=== PATIENT | female | born 1985 | race Caucasian/White ===

== ENCOUNTER 2017-11-21 09:30 | Emergency (ER) | payer OTHER ==
[2017-11-21] MEDS ORDERED: Tetan/Diph/Pertus SYR(Tdap)* 0.5 ML SYR(BOOSTRIX) use SYR IM ONE (10:07)
[2017-11-21 10:27] LABS: ABS Basophils 0 10^3/ul (0-0.2); ABS Eosinophils 0.1 10^3/ul (0-0.6); ABS Lymphocytes 1.9 10^3/ul (1.0-4.8); ABS Monocytes 0.4 10^3/ul (0-0.8); ABS Neutrophils 3.1 10^3/ul (1.5-7.7); ABS Nucleated RBC 0 10^3/ul; Eosinophil % 1.9 % (0-6); Hematocrit 40 % (35-47); Hemoglobin 13.3 g/dl (12.0-16.0); Lymphocyte % 34.1 % (25-47); Mean Corpuscular HGB Conc 33 g/dl (31-36); Mean Corpuscular Hemoglobin 28 pg (27-31); Mean Corpuscular Volume 83 fL (80-97); Mean Platelet Volume 9 um3 (7.4-10.4); Nucleated Red Blood Cells % 0; Platelet Count 252 10^3/ul (150-450); Red Blood Count 4.79 10^6/ul (4.0-5.4); Red Cell Distribution Width 14 % (10.5-15); White Blood Count 5.5 10^3/ul (3.5-10.8)
[2017-11-21 10:45] LABS: EGFR Non-African American 90.4 (>60)
--- NOTE | 2017-11-21 12:05 | ED ---
- HPI Summary HPI Summary: Pt here w/ needle stick to Right index finger just before 9:00am this morning. 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 She had used a butterfly needle to draw a pt's blood just prior to incident and reports it must have not retracted completely. She reports a small but possibly deep puncture wound to her finger w/ little to no bleeding. She washed the area after the incident and wheeled the pt out of her work area. The source pt had a blue top drawn only and pt believes he was heading to imaging next. Pt is unaware of the source pt's HIV/Hep B and C status. - History of Current Complaint Chief Complaint: EDGeneral Stated Complaint: NEEDLE STICK Time Seen by Provider: 11/21/17 09:42 PMH/Surg Hx/FS Hx/Imm Hx Previously Healthy: Yes - Immunization History Immunizations Up to Date: Yes - has received heb B series and last tetanus was 2013. Infectious Disease History: No Infectious Disease History: Denies: Traveled Outside the [place] in Last 30 Days - Family History Known Family History: Positive: None - Social History Occupation: Employed Full-time Lives: With Family Review of Systems Constitutional: Negative Positive: no symptoms reported Musculoskeletal: Negative Skin: Other - finger stick Neurological: Negative Psychological: Normal All Other Systems Reviewed And Are Negative: Yes Physical Exam Triage Information Reviewed: Yes Vital Signs On Initial Exam: Initial Vitals Temp Pulse Resp BP Pulse Ox 98.5 F 73 18 112/80 99 11/21/17 09:38 11/21/17 09:38 11/21/17 09:38 11/21/17 09:38 11/21/17 09:38 Vital Signs Reviewed: Yes Appearance: Positive: Well-Appearing, No Pain Distress, Well-Nourished Skin: Positive: Warm, Skin Color Reflects Adequate Perfusion, Dry - pinpoint area over Rt distal index finger pad w/ ecchymotic area - no bleeding, no open wound identified Head/Face: Positive: Normal Head/Face Inspection Eyes: Positive: Normal, EOMI ENT: Positive: Hearing grossly normal Neck: Positive: Supple Respiratory/Lung Sounds: Positive: Breath Sounds Present Cardiovascular: Positive: Pulses are Symmetrical in both Upper and Lower Extremities Musculoskeletal: Positive: Normal, Strength/ROM Intact Neurological: Positive: Normal, Sensory/Motor Intact, Alert, Oriented to Person Place, Time, CN Intact II-III Psychiatric: Positive: Normal Diagnostics - Vital Signs Vital Signs Temp Pulse Resp BP Pulse Ox 11/21/17 09:38 98.5 F 73 18 112/80 99 - Laboratory Lab Results: Lab Results 11/21/17 11/21/17 Range/Units 10:11 10:11 WBC 5.5 (3.5-10.8) 10^3/ul RBC 4.79 (4.0-5.4) 10^6/ul Hgb 13.3 (12.0-16.0) g/dl Hct 40 (35-47) % MCV 83 (80-97) fL MCH 28 (27-31) pg MCHC 33 (31-36) g/dl RDW 14 (10.5-15) % Plt Count 252 (150-450) 10^3/ul MPV 9 (7.4-10.4) um3 Neut % (Auto) 56.9 (38-83) % Lymph % (Auto) 34.1 (25-47) % Dewitt % (Auto) 6.7 (1-9) % Eos % (Auto) 1.9 (0-6) % Baso % (Auto) 0.4 (0-2) % Absolute Neuts (auto) 3.1 (1.5-7.7) 10^3/ul Absolute Lymphs (auto) 1.9 (1.0-4.8) 10^3/ul Absolute Monos (auto) 0.4 (0-0.8) 10^3/ul Absolute Eos (auto) 0.1 (0-0.6) 10^3/ul Absolute Basos (auto) 0 (0-0.2) 10^3/ul Absolute Nucleated RBC 0 10^3/ul Nucleated RBC % 0 Sodium 136 (133-145) mmol/L Potassium 3.9 (3.5-5.0) mmol/L Chloride 107 (101-111) mmol/L Carbon Dioxide 23 (22-32) mmol/L Anion Gap 6 (2-11) mmol/L BUN 16 (6-24) mg/dL Creatinine 0.74 (0.51-0.95) mg/dL Est GFR ( Amer) 116.2 (>60) Est GFR (Non-Af Amer) 90.4 (>60) BUN/Creatinine Ratio 21.6 H (8-20) Glucose 89 (70-100) mg/dL Calcium 9.7 (8.6-10.3) mg/dL Total Bilirubin 0.30 (0.2-1.0) mg/dL AST 15 (13-39) U/L ALT 17 (7-52) U/L Alkaline Phosphatase 55 (34-104) U/L Total Protein 7.5 (6.4-8.9) g/dL Albumin 4.3 (3.2-5.2) g/dL Globulin 3.2 (2-4) g/dL Albumin/Globulin Ratio 1.3 (1-3) Beta HCG, Quant < 0.60 mIU/mL Result Diagrams: 11/21/17 10:11 11/21/17 10:11 Lab Statement: Any lab studies that have been ordered have been reviewed, and results considered in the medical decision making process. Needlestick Course/Dx - Course Course Of Treatment: Found source pt in [place] He agreed to HIV and Hep B/C testing. He will review his results with his PCP, Dr. Shearer, and was not kept beyond this blood draw. Pt was here in the ED for 4+ hours as the process of finding the pt and problem solving correct way to obtain blood along with then processing blood and making a decision for pt was long. Discussed with pt if future body fluid exposures occur, to please keep pt and discuss issue and request consent immediately to avoid delay of obtaining specimen and desicion making. Discussed w/ Trisha Duffy and Umu Perez who also spoke w/ Dr. Jackson who signed for source pt's lab work order. Source pt's medical record # is [id number] See paperwork for details. Source pt requesting lab results be sent to PCP, Dr. Shearer. This pt will be d/c'd and discussed that based on type on injury and that source pt's results place her at very low to no risk of transmission. After much discussion and a call to Dr. Cabral, we decided pt does not need PEP. She will monitor her injury for s/sx of infection and f/u w/ PCP. - Diagnoses Provider Diagnoses: Needlestick injury accident Discharge - Discharge Plan Condition: Stable Disposition: HOME Patient Education Materials: Needle Stick Injuries (ED) Forms: *Work Release Referrals: Tootie Aguirre DO [Doctor of Osteopathy] - Additional Instructions: Follow-up with PCP. Call today to schedule an appointment for next week before your medications are completed.
[2017-11-21] MEDS ORDERED: Raltegravir* 400 MG TAB PO ONE (14:00)
[2017-11-21] MEDS ORDERED: Tenofovir/Emtricitabine(*) TAB PO ONE (14:00)
[2017-11-21 14:49] VITALS: BP 115/71
== END 2017-11-21 14:48 | disposition home or self-care (01) ==
LOC: ED 09:30
DX: S61.230A Puncture wound without foreign body of right index finger without damage to nail, initial encounter (principal); W46.0XXA Contact with hypodermic needle, initial encounter; Y92.239 Unspecified place in hospital as the place of occurrence of the external cause
CPT/HCPCS: 36415; 80053; 84702; 85025; 86703; 86706; 86803; 87340; 99282

== ENCOUNTER 2019-02-15 16:05 | Emergency (ER) | payer BC ==
[2019-02-15 16:18] VITALS: BP 122/77
--- NOTE | 2019-02-15 16:58 | UC ---
Cardiac HPI - HPI Summary HPI Summary: 33-year-old woman comes in with a chief complaint of chest pain. Started 3 days ago in the evening. Pain is just of the left of the sternum. It's constant between 2-3 out of 10. When she takes a deep breath or burps the pain goes up to about a 6 out of 10. No nausea or sweating. does feel short of breath with exertion. No fevers or chills. Pain does not get worse with pushing on the chest wall. No known trauma. One week ago patient started with epigastric pain and heartburn sensations. She started Nexium and the stomach pains went away. When she climbs stairs she does feel short of breath. Lying flat does not make the pain worse. She is not on control pills no history of DVT or PE there is no leg swelling no recent surgery or trauma. - History of Current Complaint Chief Complaint: UCChestPain Stated Complaint: HEARTBURN, AND INDIGESTION Time Seen by Provider: 02/15/19 16:37 Hx Last Menstrual Period: [id number] Pain Intensity: 3 - Allergy/Home Medications Allergies/Adverse Reactions: Allergies Allergy/AdvReac Type Severity Reaction Status Date / Time amoxicillin Allergy Rash Verified 02/15/19 16:18 Home Medications: Home Medications Esomeprazole Magnesium [Nexium 24Hr] 20 mg PO DAILY 02/15/19 [History Confirmed 02/15/19] Topiramate TAB(*) [Topamax 100 mg tab] 100 mg PO BEDTIME 02/15/19 [History Confirmed 02/15/19] PMH/Surg Hx/FS Hx/Imm Hx Previously Healthy: Yes - Surgical History Surgical History: Yes Surgery Procedure, Year, and Place: app[facility]argarita, racheal - Family History Known Family History: Positive: None, Other - No Hx DVT/PE Negative: Blood Disorder - Social History Alcohol Use: Occasionally Substance Use Type: None Smoking Status (MU): Never Smoked Tobacco Review of Systems All Other Systems Reviewed And Are Negative: Yes Constitutional: Positive: Negative Skin: Positive: Negative Eyes: Positive: Negative ENT: Positive: Negative Respiratory: Positive: Shortness Of Breath Cardiovascular: Positive: Chest Pain Gastrointestinal: Positive: Abdominal Pain Motor: Positive: Negative Neurovascular: Positive: Negative Musculoskeletal: Positive: Negative. Negative: Calf Tenderness, Edema Neurological: Positive: Negative Psychological: Positive: Negative Is Patient Immunocompromised?: No Physical Exam Triage Information Reviewed: Yes Appearance: Well-Appearing, No Pain Distress, Well-Nourished Vital Signs: Initial Vital Signs Temp 98.9 F 02/15/19 16:10 Pulse 78 02/15/19 16:10 Resp 16 02/15/19 16:10 BP 122/77 02/15/19 16:10 Pulse Ox 100 02/15/19 16:10 Vital Signs Reviewed: Yes Eye Exam: Normal Eyes: Positive: Conjunctiva Clear Neck: Positive: Supple Respiratory: Positive: Chest non-tender, Lungs clear, Normal breath sounds, No respiratory distress Cardiovascular: Positive: RRR Abdomen Description: Positive: Nontender, Soft Bowel Sounds: Positive: Present Musculoskeletal Exam: Normal Musculoskeletal: Positive: Strength Intact, ROM Intact, No Edema - No calf tenderness to palpation Psychological Exam: Normal Psychological: Positive: Age Appropriate Behavior Skin Exam: Normal - Assessment/Plan Course Of Treatment: Patient Name: OPHELIA GAMEZ Medical Record#: [id number] Ordering Physician: Saul Brown MD Acct.#: [id number] : 1985 Age: 33 Sex: F Location: [facility] Exam Date: 02/15/191650 ADM Status: REG ER Order Information: CHEST PA LAT 2 VWS Accession Number: [id number] CPT: 27208 INDICATION: 3 days of left chest pain COMPARISON: None TECHNIQUE: PA and lateral views of the chest were obtained. FINDINGS: The heart and mediastinum are normal in size and contour. The lungs are grossly clear. There is no evidence of large pleural effusion. Visualized bones are normal for the patient's age. There is no radiographic evidence of free air beneath the diaphragm IMPRESSION: No radiographic evidence of acute cardiopulmonary disease. <Electronically signed by Paramjit Arevalo MD in OV> 02/15/19 0351 I discussed the x-ray and the EKG with the patient. Both are normal. Patient pain is worse when she burps and it started after epigastric pain which makes the most likely cause of the pain to be GERD. She is low risk for pulmonary embolus or deep venous thrombosis. The plan is to make sure she is taking the full dose of Nexium 40 mg a day. She can also take [id number] medicine such as Tums. Sleep with the head of the bed propped up. I prescribed an albuterol inhaler so that she can use that to see if that helps with the shortness of breath. Mechanism could be that if she is aspirating some gastric acids she could be getting short of breath. we did discuss that we have not completely rule out pulmonary embolus and that if her symptoms do not improve or they worsen she needs to get reevaluated in the emergency department. Plan is to have the patient follow up with her primary care physician and gastroenterology. - Clinical Impression Provider Diagnosis: Chest pain, Epigastric pain, GERD (gastroesophageal reflux disease) Discharge - Sign-Out/Discharge Documenting (check all that apply): Patient Departure All imaging exams completed and their final reports reviewed: Yes - Discharge Plan Condition: Stable Disposition: HOME Prescriptions: Albuterol HFA INHALER* [Ventolin HFA Inhaler*] 2 puff INH Q4H PRN #1 mdi PRN Reason: Shortness Of Breath Patient Education Materials: Chest Pain (ED), Gastroesophageal Reflux Disease ( ED), Epigastric Pain (ED) Referrals: Nya Elizalde MD [Primary Care Provider] - Dean Machuca DO [Doctor of Osteopathy] - Additional Instructions: FOLLOW UP WITH YOUR DOCTOR. FOLLOW UP WITH GASTROENTEROLOGY, DR MACHUCA. WE DID NOT COMPLETELY RULE OUT PULMONARY EMBOLISM TODAY; GET RECHECKED IF NOT IMPROVING OR WORSE. TAKE NEXIUM 40MG DAILY. SLEEP WITH THE HEAD OF THE BED ELEVATED. GO TO THE EMERGENCY DEPARTMENT IF YOUR CONDITION WORSENS; PAIN, SHORTNESS OF BREATH, YOU FEEL ILL OR ANY QUESTIONS OR CONCERNS. - Billing Disposition and Condition Condition: STABLE Disposition: Home
== END 2019-02-15 17:48 | disposition home or self-care (01) ==
LOC: UCEAST 16:05
DX: R07.89 Other chest pain (principal); R10.13 Epigastric pain; K21.9 Gastro-esophageal reflux disease without esophagitis; R06.02 Shortness of breath; Z90.49 Acquired absence of other specified parts of digestive tract; Z90.89 Acquired absence of other organs; Z88.0 Allergy status to penicillin
CPT/HCPCS: 71046; 93005; 99212; G0463